=== PATIENT | female | born 1965 | race Caucasian/White ===

== ENCOUNTER 2017-05-25 00:33 | Emergency (ER) | payer OTHER ==
[2017-05-25] MEDS ORDERED: Sodium Chloride 0.9% 1,000 ML IV ONE (00:41)
[2017-05-25] MEDS ORDERED: EPINEPHrine 1 MG/ML SDV SUBCUT ONE (00:41)
[2017-05-25] MEDS ORDERED: methylPREDNISolone Sodium Succinate 125 MG/2 ML SDV IVPUSH ONE (00:41)
[2017-05-25] MEDS ORDERED: diphenhydrAMINE 50 MG/ML SDV IVPUSH ONE (00:41)
--- NOTE | 2017-05-25 00:45 | EDM.PDOC ---
ED HPI GENERAL MEDICAL PROBLEM - General Chief Complaint: Allergic Reaction Stated Complaint: BIT BY SOMETHING AND THROAT IS SWOLLEN [id number] Time Seen by Provider: 05/25/17 00:42 Source of Information: Reports: Patient, Family History Limitations: Reports: No Limitations - History of Present Illness INITIAL COMMENTS - FREE TEXT/NARRATIVE: sudden onset itchy rash on right thigh area tonight and throat feels swollen, denies new foods/clothing/detergent/meds. but been on bactrim for acne on face past 10 days. ate pizza tonight. otherwise nothing unusual. - Related Data Allergies Allergy/AdvReac Type Severity Reaction Status Date / Time codeine Allergy Chest Verified 05/25/17 20:43 Tightness Home Meds: Home Meds . [No Known Home Meds] 05/25/17 [History] ED ROS ALLERGIC REACTION - Review of Systems Review Of Systems: ROS reveals no pertinent complaints other than HPI. ED EXAM GENERAL NO PERIP PULSE - Physical Exam Exam: See Below Exam Limited By: No Limitations General Appearance: Alert, WD/WN, Anxious, Mild Distress, Moderate Distress, Other (upset) Ears: Hearing Grossly Normal Throat/Mouth: Normal Voice, No Airway Compromise, Other (no gross edema noted) Head: Atraumatic Neck: Non-Tender, Full Range of Motion Respiratory/Chest: No Respiratory Distress, Lungs Clear, Normal Breath Sounds Cardiovascular: Regular Rate, Rhythm GI/Abdominal: Soft, Non-Tender Extremities: Other (right thigh multiple areas of pruritic urticarial rash) Neurological: Alert, Oriented, Normal Cognition, Normal Gait, No Motor/Sensory Deficits Psychiatric: Anxious, Flat Affect Skin Exam: Warm, Dry, Normal Color Lymphatic: No Adenopathy Course - Vital Signs Last Recorded V/S: Last Vital Signs Temp 37.3 C 05/25/17 01:30 Pulse 88 05/25/17 01:30 Resp 14 05/25/17 01:30 BP 117/62 05/25/17 01:30 Pulse Ox 100 05/25/17 01:30 - Orders/Labs/Meds Labs: Laboratory Tests 05/25/17 05/25/17 Range/Units 00:45 00:45 WBC 10.1 H (5.0-10.0) 10^3/uL RBC 4.90 (4.2-5.4) 10^6/uL Hgb 14.8 (12.0-16.0) g/dL Hct 43.7 (37.0-47.0) % MCV 89.2 (80-100) fL MCH 30.2 (27.0-34.0) pg MCHC 33.9 (33.0-35.0) g/dL Plt Count 156 (150-450) 10^3/uL Neut % (Auto) 67.0 (42.2-75.2) % Lymph % (Auto) 26.5 (20.5-50.1) % [place] % (Auto) 5.9 (2-8) % Eos % (Auto) 0.4 L (1.0-3.0) % Baso % (Auto) 0.2 (0.0-1.0) % Add Manual Diff Yes Neutrophils % (Manual) 63 (42-75) % Band Neutrophils % 2 % Lymphocytes % (Manual) 27 (20-50) % Atypical Lymphs % 0 % Monocytes % (Manual) 6 (2-8) % Eosinophils % (Manual) 2 (1-3) % Basophils % (Manual) 0 Sodium 138 (135-145) mmol/L Potassium 3.3 L (3.6-5.0) mmol/L Chloride 101 (101-111) mmol/L Carbon Dioxide 28.0 (21.0-31.0) mmol/L Anion Gap 12.3 BUN 19 H (7-18) mg/dL Creatinine 1.0 (0.6-1.3) mg/dL Est Cr Clr Drug Dosing 62.31 mL/min Estimated GFR (MDRD) 58 BUN/Creatinine Ratio 19.00 Glucose 100 (74-105) mg/dL Calcium 9.4 (8.4-10.2) mg/dl Total Bilirubin 0.7 (0.2-1.0) mg/dL AST 25 (10-42) IU/L ALT 18 (10-60) IU/L Alkaline Phosphatase 67 (42-121) IU/L Total Protein 7.1 (6.7-8.2) g/dl Albumin 4.5 (3.2-5.5) g/dl Globulin 2.6 Albumin/Globulin Ratio 1.73 Meds: Medications Discontinued Medications Generic Name Dose Route Start Last Admin Trade Name Freq PRN Reason Stop Dose Admin Diphenhydramine HCl 25 mg 05/25/17 00:41 05/25/17 00:49 Benadryl IVPUSH 05/25/17 00:42 25 mg ONETIME ONE Administration Epinephrine HCl 0.5 mg 05/25/17 00:41 05/25/17 00:50 Adrenalin SUBCUT 05/25/17 00:42 0.5 mg ONETIME ONE Administration Sodium Chloride 1,000 mls @ 999 mls/hr 05/25/17 00:41 05/25/17 00:49 Normal Saline IV 05/25/17 01:41 999 mls/hr .BOLUS ONE Administration Methylprednisolone Sodium Succinate 125 mg 05/25/17 00:41 05/25/17 00:49 Solu-Medrol IVPUSH 05/25/17 00:42 125 mg ONETIME ONE Administration Ondansetron HCl 4 mg 05/25/17 00:54 05/25/17 01:00 Zofran IV 05/25/17 00:55 4 mg ONETIME ONE Administration - Re-Assessments/Exams Free Text/Narrative Re-Assessment/Exam: 05/25/17 01:22 re-exam; s/p IV Rx = much better. Departure - Departure Time of Disposition: 01:40 Disposition: Home, Self-Care 01 Condition: Good Clinical Impression: Allergic reaction Qualifiers: Encounter type: initial encounter Qualified Code(s): T78.40XA - Allergy, unspecified, initial encounter - Discharge Information Instructions: Angioedema, [id number] Forms: ED Department Discharge Additional Instructions: 1) avoid sulpha meds 2) continue benadryl 25mg, take one to two every 8 hours as needed for itchy rash 3) see clinic if not significantly better by Friday 4) return if there is any change or concern rx given; medrol dospak
[2017-05-25] MEDS ORDERED: Ondansetron 4 MG/2 ML SDV IV ONE (00:54)
[2017-05-25 01:10] LABS: ANION GAP 12.3
== END 2017-05-25 01:42 | disposition home or self-care (01) ==
LOC: DL.ED 00:33
DX: T78.40XA Allergy, unspecified, initial encounter (principal); Z88.5 Allergy status to narcotic agent; T78.2XXD Anaphylactic shock, unspecified, subsequent encounter; T78.3XXD Angioneurotic edema, subsequent encounter
CPT/HCPCS: 36415; 80053; 85025; 96361; 96372; 96374; 96375; 99284; 99285; A9270; J0171; J1200; J2405; J2930; J7030; J7050; S0028

== ENCOUNTER 2017-05-25 20:28 | Emergency (ER) | payer OTHER ==
[2017-05-25] MEDS ORDERED: Sodium Chloride 0.9% 10 ML Syringe FLUSH PRN (20:31)
[2017-05-25] MEDS ORDERED: EPINEPHrine 1 MG/ML SDV IM ONE ×2 (20:31→20:59)
[2017-05-25] MEDS ORDERED: Sodium Chloride 0.9% 1,000 ML IV ONE (20:32)
[2017-05-25] MEDS ORDERED: Famotidine 20 MG/2 ML SDV IVPUSH ONE (20:32)
[2017-05-25] MEDS ORDERED: methylPREDNISolone Sodium Succinate 125 MG/2 ML SDV IVPUSH ONE (20:37)
--- NOTE | 2017-05-25 20:41 | EDM.PDOC ---
ED HPI GENERAL MEDICAL PROBLEM - General Chief Complaint: Allergic Reaction Stated Complaint: alergic reaction Time Seen by Provider: 05/25/17 20:30 Source of Information: Reports: Patient, Family, RN, RN Notes Reviewed History Limitations: Reports: No Limitations - History of Present Illness INITIAL COMMENTS - FREE TEXT/NARRATIVE: Pt presents to the ER with c/o swelling of the lips and tongue and severe tightness in the throat. states she was seen in the ER last night for an allergic reaction with swelling to the lips and hives. She has recently been on a Sulfa drug. states she has taken Benadryl 50 which only helped for a short time. Onset: Today, Sudden Duration: Getting Worse Throat Pain Score (Numeric/FACES): 5 - Related Data Allergies Allergy/AdvReac Type Severity Reaction Status Date / Time codeine Allergy Chest Verified 05/25/17 20:43 Tightness Home Meds: Home Meds . [No Known Home Meds] 05/25/17 [History] Past Medical History - Infectious Disease History Infectious Disease History: Reports: Chicken Pox - Past Surgical History GI Surgical History: Reports: Cholecystectomy Female Surgical History: Reports: Section, Hysterectomy, Other (See Below) Other Female Surgeries/Procedures: bladder repair Social & Family History - Family History Family Medical History: Noncontributory - Tobacco Use Smoking Status *Q: Never Smoker Second Hand Smoke Exposure: No - Caffeine Use Caffeine Use: Reports: Coffee - Recreational Drug Use Recreational Drug Use: No ED ROS ALLERGIC REACTION - Review of Systems Review Of Systems: ROS reveals no pertinent complaints other than HPI. ED EXAM GENERAL NO PERIP PULSE - Physical Exam Exam: See Below Exam Limited By: No Limitations General Appearance: Alert, WD/WN, Moderate Distress Eye Exam: Bilateral Eye: EOMI, Normal Inspection, PERRL Ears: Normal External Exam, Hearing Grossly Normal Nose: Normal Inspection Throat/Mouth: Normal Inspection, Normal Voice, No Airway Compromise. No: Normal Lips (upper lip significantly swollen) Head: Atraumatic, Normocephalic Neck: Normal Inspection, Supple, Non-Tender, Full Range of Motion, Other ( feeling of tightness in the throat) Respiratory/Chest: No Respiratory Distress, Lungs Clear, Normal Breath Sounds, No Accessory Muscle Use, Chest Non-Tender Cardiovascular: Normal Peripheral Pulses, Regular Rate, Rhythm, No Edema, No Gallop, No JVD, No Murmur, No Rub GI/Abdominal: Normal Bowel Sounds, Soft, Non-Tender, No Organomegaly, No Distention, No Abnormal Bruit, No Mass, Pelvis Stable, Other (burning in the esophagus and stomach ) (Female) Exam: Deferred Rectal (Female) Exam: Deferred Back Exam: Normal Inspection, Full Range of Motion, NT Extremities: Normal Inspection, Normal Range of Motion, Non-Tender, Normal Capillary Refill, No Pedal Edema Neurological: Alert, Oriented, CN II-XII Intact, Normal Cognition, Normal Gait, Normal Reflexes, No Motor/Sensory Deficits Psychiatric: Normal Affect, Normal Mood Skin Exam: Warm, Dry, Intact, No Rash Lymphatic: No Adenopathy Course - Vital Signs Last Recorded V/S: Last Vital Signs Temp 98.1 F 05/25/17 20:35 Pulse 106 H 05/25/17 20:35 Resp 20 05/25/17 20:35 BP 115/75 05/25/17 20:35 Pulse Ox 100 05/25/17 20:35 - Orders/Labs/Meds Orders: Active Orders 24 hr Category Date Time Status Peripheral IV Care [RC] . DIRECTED Care 05/25/17 20:31 Active GI Cocktail Med 05/25/17 21:46 Once 30 ml PO ONETIME ONE Sodium Chloride 0.9% [Saline Flush] Med 05/25/17 20:31 Active 10 ml FLUSH ASDIRECTED PRN Peripheral IV Insertion Adult [OM.PC] Stat Oth 05/25/17 20:31 Ordered Medication Orders Sodium Chloride (Saline Flush) 10 ml FLUSH ASDIRECTED PRN PRN Reason: Keep Vein Open Last Admin: 05/25/17 20:42 Dose: 10 ml Meds: Medications Generic Name Dose Route Start Last Admin Trade Name Freq PRN Reason Stop Dose Admin Sodium Chloride 10 ml 05/25/17 20:31 05/25/17 20:42 Saline Flush FLUSH 10 ml ASDIRECTED PRN Administration Keep Vein Open Discontinued Medications Generic Name Dose Route Start Last Admin Trade Name Freq PRN Reason Stop Dose Admin Epinephrine HCl 0.5 mg 05/25/17 20:31 05/25/17 20:38 Adrenalin IM 05/25/17 20:32 0.5 mg ONETIME ONE Administration Epinephrine HCl 0.5 mg 05/25/17 20:59 05/25/17 21:05 Adrenalin IM 05/25/17 21:00 0.5 mg ONETIME ONE Administration Famotidine 20 mg 05/25/17 20:32 05/25/17 20:41 Pepcid IVPUSH 05/25/17 20:33 20 mg ONETIME ONE Administration Sodium Chloride 1,000 mls @ 999 mls/hr 05/25/17 20:32 05/25/17 20:38 Normal Saline IV 05/25/17 21:32 999 mls/hr .BOLUS ONE Administration Methylprednisolone Sodium Succinate 125 mg 05/25/17 20:37 05/25/17 20:41 Solu-Medrol IVPUSH 05/25/17 20:38 125 mg ONETIME ONE Administration Departure - Departure Time of Disposition: 21:48 Disposition: Home, Self-Care 01 Clinical Impression: Allergic reaction Qualifiers: Encounter type: initial encounter Qualified Code(s): T78.40XA - Allergy, unspecified, initial encounter Anaphylaxis Qualifiers: Encounter type: subsequent encounter Qualified Code(s): T78.2XXD - Anaphylactic shock, unspecified, subsequent encounter Angioedema Qualifiers: Encounter type: subsequent encounter Qualified Code(s): T78.3XXD - Angioneurotic edema, subsequent encounter - Discharge Information Instructions: Anaphylactic Reaction, Allergies, Bronchospasm, Adult, Easy-to- Read Forms: ED Department Discharge Additional Instructions: Get the Medrol Dose pack filled RX: Magic Mouthwash Be sure to have Sulfa drugs put on your allergy lists Follow up with your primary care facility this week. - My Orders Last 24 Hours: My Active Orders 05/25/17 20:31 Peripheral IV Care [RC] . DIRECTED Sodium Chloride 0.9% [Saline Flush] 10 ml FLUSH ASDIRECTED PRN Peripheral IV Insertion Adult [OM.PC] Stat 05/25/17 21:46 GI Cocktail 30 ml PO ONETIME ONE - Assessment/Plan Last 24 Hours: My Active Orders 05/25/17 20:31 Peripheral IV Care [RC] . DIRECTED Sodium Chloride 0.9% [Saline Flush] 10 ml FLUSH ASDIRECTED PRN Peripheral IV Insertion Adult [OM.PC] Stat 05/25/17 21:46 GI Cocktail 30 ml PO ONETIME ONE
[2017-05-25] MEDS ORDERED: GI Cocktail Oral Solution 30 ML PO ONE (21:46)
== END 2017-05-25 22:11 | disposition home or self-care (01) ==
LOC: DL.ED 20:28
DX: T78.40XA Allergy, unspecified, initial encounter (principal); T78.2XXD Anaphylactic shock, unspecified, subsequent encounter; T78.3XXD Angioneurotic edema, subsequent encounter; Z88.5 Allergy status to narcotic agent
CPT/HCPCS: 96361; 96372; 96374; 96375; 99284; A9270; J0171; J2930; J7030; J7050; S0028

== ENCOUNTER 2017-05-26 14:13 | Inpatient (IN) | payer OTHER ==
[2017-05-26] MEDS ORDERED: methylPREDNISolone Sodium Succinate 125 MG/2 ML SDV IVPUSH ONE (14:18)
[2017-05-26] MEDS ORDERED: Sodium Chloride 0.9% 1,000 ML IV ONE (14:18)
[2017-05-26] MEDS ORDERED: Famotidine 20 MG/2 ML SDV IVPUSH ONE (14:21)
[2017-05-26] MEDS: Sodium Chloride 0.9% 10 ML Syringe FLUSH PRN ×3 (14:30→22:47)
[2017-05-26 14:57] LABS: ANION GAP 12.6; CHLORIDE,CL 99 mmol/L (101-111); SODIUM,NA 135 mmol/L (135-145)
[2017-05-26] MEDS: DIPHENHYDRAMINE 25 MG PO SCH ×2 (17:35→21:46)
[2017-05-26] MEDS: Famotidine 20 MG/2 ML SDV IVPUSH SCH (20:52)
[2017-05-26] MEDS: cycloSPORINE Ophth Drops U/D Box of 30 EYEBOTH SCH (20:59)
[2017-05-26] MEDS: methylPREDNISolone Sodium Succinate 40 MG/1 ML SDV IVPUSH SCH ×2 (22:24→22:47)
--- NOTE | 2017-05-26 23:30 | HP ---
DOS: 05/26/2017 HISTORY OF PRESENT ILLNESS: The patient is a 52-year-old female, admitted here for observation. The patient was seen in the emergency room twice prior to this admission. The patient has been having episodes of anaphylaxis in which has been having some hives and noted to have some lip swelling. She denies any prior history of hives or angioedema over the legs. The patient was recently completing a dose of Bactrim for a skin infection, and the last dose was 3 days prior to this visit. She used to take Bactrim in the past with no reported side effects. When she was in the emergency room, she was initially discharged on Medrol Dosepak and then she also got a dose of EpiPen while she was in the emergency room. When she went home, the symptoms have started to subside and again came back last night. Again given a dose of epinephrine after she was seen with recurrence of the lip swelling. She has been taking her Benadryl 50 mg every 6 hours. She denies any shortness of breath. Continues to have urticarial rash all over her body, now mainly on the trunk and lower extremities and very itchy. Denies similar symptoms in the household. No fever or chills. She was also started on prednisolone drops by her practice advisor and noticed some conjunctival injection but no blurring of vision. MEDICATIONS: Reviewed. ALLERGIES: To codeine. REVIEW OF SYSTEMS: Ten systems reviewed and were negative except for those mentioned above. PHYSICAL EXAMINATION: Vital Signs: Blood pressure 114/76, heart rate of 98 beats per minute, respirations 20 breaths per minute, oxygen saturation 100%, temperature 99.6. General Appearance: Awake, not in distress. Speaking in sentences. HEENT: Normocephalic, atraumatic. Eyes, bilateral conjunctival injections. No active drainage from both eyes. Cardiovascular: Regular rate and rhythm. Chest: Symmetric chest expansion. Lungs: Bilateral air entry. Abdomen: Soft. Normoactive bowel sounds. Extremities: No edema. Good pulses. Neurologic: Awake and oriented x3. ASSESSMENT/PLAN: Labs reviewed. Leukocytosis mainly from recent steroid use. She was already given Solu-Medrol at the emergency room. We will continue with every 8 hours, and we will continue famotidine. We will start albuterol nebulization every 6 hours as needed for shortness of breath. We will monitor oxygen saturation every 4 hours. Continue with IV fluids. Continue the rest of her medications. We will continue to follow the patient in the medical-surgical bed. [facility] /[id number]
[2017-05-27] MEDS: DIPHENHYDRAMINE 25 MG PO SCH ×6 (01:27→21:19)
[2017-05-27] MEDS: methylPREDNISolone Sodium Succinate 40 MG/1 ML SDV IVPUSH SCH ×2 (05:41→14:15)
[2017-05-27] MEDS: Sodium Chloride 0.9% 10 ML Syringe FLUSH PRN (05:41)
[2017-05-27] MEDS: cycloSPORINE Ophth Drops U/D Box of 30 EYEBOTH SCH ×2 (09:24→21:19)
[2017-05-27] MEDS: Hydrochlorothiazide/Triamterene 25-37.5 Tab PO SCH (09:24)
[2017-05-27] MEDS: Famotidine 20 MG/2 ML SDV IVPUSH SCH ×2 (09:24→21:15)
[2017-05-27] MEDS: Rosuvastatin 10 MG Tab PO SCH (09:24)
[2017-05-27] MEDS: Albuterol 0.083% 2.5 MG/3 ML Neb Soln NEB PRN ×2 (11:17→19:53)
[2017-05-27] MEDS: ALPRAZolam 0.5 MG Tab PO PRN ×2 (12:07→21:20)
[2017-05-27] MEDS: Acetaminophen 325 MG Tab PO PRN (18:02)
[2017-05-28] MEDS ORDERED: hydrOXYzine HCl 25 MG Tab PO ONE (00:09)
[2017-05-28] MEDS: DIPHENHYDRAMINE 25 MG PO SCH ×4 (01:26→09:48)
[2017-05-28] MEDS ORDERED: Pantoprazole 40 MG Tab.CR PO ONE (01:42)
[2017-05-28] MEDS ORDERED: GI Cocktail Oral Solution 30 ML PO ONE (03:44)
[2017-05-28] MEDS ORDERED: methylPREDNISolone Sodium Succinate 40 MG/1 ML SDV IVPUSH ONE (04:04)
[2017-05-28] MEDS ORDERED: diphenhydrAMINE 50 MG/ML SDV IVPUSH ONE (04:05)
[2017-05-28] MEDS: Acetaminophen 325 MG Tab PO PRN ×2 (08:07→19:55)
[2017-05-28] MEDS ORDERED: CETIRIZINE 10 MG PO SCH ×2 (09:00→21:00)
[2017-05-28] MEDS: Famotidine 20 MG/2 ML SDV IVPUSH SCH ×3 (09:20→22:32)
[2017-05-28] MEDS: Sodium Chloride 0.9% 10 ML Syringe FLUSH PRN ×8 (09:22→23:27)
[2017-05-28] MEDS: Rosuvastatin 10 MG Tab PO SCH (09:28)
[2017-05-28] MEDS: Hydrochlorothiazide/Triamterene 25-37.5 Tab PO SCH (09:28)
--- NOTE | 2017-05-28 09:29 | PN ---
DATE: 05/27/2017 SUBJECTIVE: Ms. Barnett is a 52-year-old female seen in subsequent hospitalization. The patient was admitted as a case of allergic reaction possibly to Bactrim and prednisone. She has been getting IV Solu-Medrol, has been maintaining good oxygen saturation. However, the patient subjectively noticed worsening of the hives, but when we look at the rashes they are not that demarcated just streaks of red patch. She feels that as if her throat is closing and tight. She denies any wheezing. OBJECTIVE: Vital Signs: Blood pressure 122/75, heart rate of 88 beats per minute, respirations 20 breaths per minute, oxygen saturation 99%, temperature 99.9. General Appearance: Awake, not in distress. Speaking in sentences. Chest: Symmetric chest expansion. Lungs bilateral air entry. Cardiovascular: Regular rate and rhythm. Neurologic: Awake and alert. ASSESSMENT AND PLAN: We will continue with IV Solu-Medrol for now and Benadryl every 4 hours. We will have her do albuterol nebulizations. Prednisone was put on as an intolerance. Again, on review when she was in the emergency room, she was given Solu-Medrol and noted improvement of the symptoms. We will observe her for continued improvement of the hives, otherwise, she remains hemodynamically stable. [facility] /[id number] NADER
[2017-05-28] MEDS: cycloSPORINE Ophth Drops U/D Box of 30 EYEBOTH SCH ×2 (09:47→22:50)
[2017-05-28] MEDS ORDERED: Montelukast 10 MG Tab PO ONE (10:22)
[2017-05-28] MEDS: diphenhydrAMINE 50 MG/ML SDV IVPUSH SCH ×4 (10:47→23:28)
--- NOTE | 2017-05-28 11:26 | PN ---
DATE: 05/28/2017 SUBJECTIVE: Ms. Barnett is a 52-year-old female, admitted because of allergic reaction. On brief history, the patient was given IV Solu-Medrol in the emergency room. This was continued as a Solu-Medrol 40 mg every 8 hours, which the patient got 3 doses and the last dose was 4:00 p.m. yesterday. Towards the night, she started having itching and early this morning around 3:00 a.m. to 4:00 a.m. noticed that hives are worsening, but otherwise, maintaining good oxygen saturation. Denies shortness of breath and vital signs have been stable. She was given IV Solu-Medrol 80 mg and IV Benadryl. On brief review, the patient was taking 9- day course of Bactrim for skin infection before she presented last Friday 2 days prior to being admitted, in which she was discharged from the ER on Medrol Dosepak, which she apparently was not filled, came back to the emergency room the day after, that is Friday, with the same problem with lip swelling and she was given prednisone medication, which when she took on the morning of admitted, she noticed appearance of the hives. Reports that when she has gotten Solu-Medrol in the emergency room, symptoms are better. OBJECTIVE: Vital Signs: This morning, on encounter, blood pressure 117/69, heart rate of 92 beats per minute, respirations 20 breaths per minute, oxygen saturation 98%, temperature 100.0. General Appearance: Awake, in distress. Speaking in sentences. CVS: Regular rate and rhythm. Chest: Symmetric chest expansion. Lungs, bilateral air entry. Abdomen: Soft normoactive bowel sounds. Skin: New urticarial rash noted on both upper extremities and on both the trapezius area and also on bilateral thighs. ASSESSMENT AND PLAN: We will change Benadryl to 25 mg IV every 6 hours and we will do Solu-Medrol 60 mg IV every 8 hours. We will start Singulair. Discontinue for now Crestor, Maxzide, and Restasis. We will continue with Pepcid twice a day. We will add Zyrtec. The patient reports that she was exposed to cases of influenza days prior to admission. With this fever, we will screen her for influenza testing. We will continue to follow her in medical- surgical bed. [facility] /[id number] MTDD
[2017-05-28] MEDS: methylPREDNISolone Sodium Succinate 125 MG/2 ML SDV IVPUSH SCH ×3 (12:06→22:14)
[2017-05-28] MEDS: ESTRADIOL 1 MG PO SCH ×2 (17:16→17:59)
--- NOTE | 2017-05-28 18:50 | EDM.PDOC ---
ED HPI GENERAL MEDICAL PROBLEM - General Chief Complaint: Allergic Reaction Stated Complaint: ALLERGIC REACTION [id number] Time Seen by Provider: 05/27/17 14:15 Source of Information: Reports: Patient History Limitations: Reports: No Limitations - History of Present Illness INITIAL COMMENTS - FREE TEXT/NARRATIVE: Pt presents to the ER with continued problem with allergic reaction. She states she has also been using a prednisolone drops in her eyes. She states she does not have the tightening in the throat as badly as she did previously, and less angioedema, but hives and itching on her trunk. Patient states they previously thought she was allergic to the Bactrim she had been taking. This is the third visit the patient has made to the ER in the past 36 hours for the allergic reaction. Onset: Today, Sudden feet Pain Score (Numeric/FACES): 0 - Related Data Allergies Allergy/AdvReac Type Severity Reaction Status Date / Time codeine Allergy Severe Chest Verified 05/27/17 14:00 Tightness prednisolone acetate, Allergy Severe Hives Verified 05/27/17 14:00 micronized prednisone Allergy Severe Hives Verified 05/27/17 14:00 sulfamethoxazole Allergy Severe angioedema Verified 05/28/17 04:07 [From Bactrim] trimethoprim [From Bactrim] Allergy Severe angioedema Verified 05/28/17 04:07 Home Meds: Home Meds ALPRAZolam [ALPRAZolam] 0.5 mg PO Q4HR PRN 05/26/17 [History] Cyanocobalamin (Vitamin B-12) [Cyanocobalamin Injection] 1,000 mcg IM Q30D 05/26 [History] Estradiol [Estradiol] 1 mg PO DAILY 05/26/17 [History] Rosuvastatin [Crestor] 10 mg PO DAILY 05/26/17 [History] Triamterene/Hydrochlorothiazid [Triamterene-HCTZ 37.5-25 MG] 1 tab PO DAILY [History] cycloSPORINE [Restasis] 1 drop EYEBOTH BID 05/26/17 [History] diphenhydrAMINE [Benadryl] 50 mg PO Q4H 05/26/17 [History] predniSONE [Prednisone] 4 mg PO ASDIRECTED 05/26/17 [History] Past Medical History Cardiovascular History: Reports: High Cholesterol, Hypertension Neurological History: Reports: Vertigo Hematologic History: Reports: B12 Deficiency, Other (See Below) Dermatologic History: Reports: Other (See Below) Other Dermatologic History: rash from allergic reaction bactrim - Infectious Disease History Infectious Disease History: Reports: Chicken Pox - Past Surgical History HEENT Surgical History: Reports: Other (See Below) Other HEENT Surgeries/Procedures: Menieres Disease GI Surgical History: Reports: Cholecystectomy, Colonoscopy, EGD Female Surgical History: Reports: Section, Hysterectomy, Other (See Below) Other Female Surgeries/Procedures: bladder repair Social & Family History - Family History Family Medical History: Noncontributory Respiratory: Reports: Asthma Oncologic: Reports: Leukemia - Tobacco Use Smoking Status *Q: Former Smoker Used Tobacco, but Quit: Yes Month Tobacco Last Used: march Second Hand Smoke Exposure: No - Caffeine Use Caffeine Use: Reports: Coffee - Recreational Drug Use Recreational Drug Use: No ED ROS ALLERGIC REACTION - Review of Systems Review Of Systems: ROS reveals no pertinent complaints other than HPI. ED EXAM GENERAL NO PERIP PULSE - Physical Exam Exam: See Below Exam Limited By: No Limitations General Appearance: Alert, WD/WN, Moderate Distress Eye Exam: Bilateral Eye: EOMI, Normal Inspection, PERRL Ears: Normal External Exam, Hearing Grossly Normal Nose: Normal Inspection, Normal Mucosa, No Blood Throat/Mouth: Normal Inspection, Normal Voice, No Airway Compromise Head: Atraumatic Neck: Normal Inspection, Supple, Non-Tender, Full Range of Motion Respiratory/Chest: No Respiratory Distress, Lungs Clear, Normal Breath Sounds, No Accessory Muscle Use, Chest Non-Tender Cardiovascular: Normal Peripheral Pulses, Regular Rate, Rhythm, No Edema, No Gallop, No JVD, No Murmur, No Rub GI/Abdominal: Normal Bowel Sounds, Soft, Non-Tender, No Organomegaly, No Distention, No Abnormal Bruit, No Mass (Female) Exam: Deferred Rectal (Female) Exam: Deferred Back Exam: Normal Inspection, Full Range of Motion, NT Extremities: Normal Inspection, Normal Range of Motion, Non-Tender, Normal Capillary Refill, No Pedal Edema Neurological: Alert, Oriented, CN II-XII Intact, Normal Cognition, Normal Gait, Normal Reflexes, No Motor/Sensory Deficits Psychiatric: Anxious, Tearful Skin Exam: Warm, Dry, Rash, Other (hives) Lymphatic: No Adenopathy Course - Vital Signs Last Recorded V/S: Last Vital Signs Temp 100.0 F 05/28/17 12:00 Pulse 88 05/28/17 12:00 Resp 20 05/28/17 12:00 BP 117/69 05/28/17 08:22 Pulse Ox 96 05/28/17 12:00 - Orders/Labs/Meds Orders: Active Orders 24 hr Category Date Time Status Cyanocobalamin (Vitamin B12) [Vitamin B12] Med 06/19/17 09:00 Active 1,000 mcg IM Q30D diphenhydrAMINE [Benadryl] Med 05/28/17 11:00 Active 25 mg IVPUSH Q4H methylPREDNISolone Sod Succ [Solu-MEDROL] Med 05/28/17 12:00 Active 60 mg IVPUSH Q8H Medication Orders Acetaminophen (Tylenol) 650 mg PO Q6H PRN PRN Reason: Pain Last Admin: 05/28/17 08:07 Dose: 650 mg Admin: 05/27/17 18:02 Dose: 650 mg Albuterol (Proventil Neb Soln) 2.5 mg NEB Q4HRRT PRN PRN Reason: Shortness of Breath Last Admin: 05/27/17 19:53 Dose: 2.5 mg Admin: 05/27/17 11:17 Dose: 2.5 mg Alprazolam (Xanax) 0.5 mg PO Q4H PRN PRN Reason: DIZZINESS/MENIERES DISEASE SX Last Admin: 05/27/17 21:20 Dose: 0.5 mg Admin: 05/27/17 12:07 Dose: 0.5 mg Cyanocobalamin (Vitamin B12) 1,000 mcg IM Q30D [facility] Cyclosporine (Restasis) 1 each EYEBOTH BID [facility] Last Admin: 05/28/17 09:47 Dose: Admin: 05/27/17 21:19 Dose: 1 drop Admin: 05/27/17 09:24 Dose: 1 drop Admin: 05/26/17 20:59 Dose: 1 drop Diphenhydramine HCl (Benadryl) 25 mg IVPUSH Q4H [facility] Last Admin: 05/28/17 15:09 Dose: 25 mg Admin: 05/28/17 10:47 Dose: 25 mg Famotidine (Pepcid) 20 mg IVPUSH BID [facility] Last Admin: 05/28/17 09:35 Dose: 20 mg Admin: 05/27/17 21:15 Dose: 20 mg Admin: 05/27/17 09:24 Dose: 20 mg Admin: 05/26/17 20:52 Dose: 20 mg Methylprednisolone Sodium Succinate (Solu-Medrol) 60 mg IVPUSH Q8H [facility] Last Admin: 05/28/17 12:06 Dose: Estradiol 1 Mg (Patient's Own Med) 1 each PO DAILY [facility] Last Admin: 05/28/17 17:59 Dose: Admin: 05/28/17 17:16 Dose: Cetirizine 10mg Tabs (Pt's Own Med) 1 each PO BID [facility] Rosuvastatin Calcium (Crestor) 10 mg PO DAILY [facility] Last Admin: 05/28/17 09:28 Dose: Admin: 05/27/17 09:24 Dose: 10 mg Sodium Chloride (Saline Flush) 10 ml FLUSH ASDIRECTED PRN PRN Reason: Keep Vein Open Last Admin: 05/28/17 15:10 Dose: 10 ml Admin: 05/28/17 10:48 Dose: 10 ml Admin: 05/28/17 09:22 Dose: 10 ml Admin: 05/27/17 05:41 Dose: 10 ml Admin: 05/26/17 22:47 Dose: 10 ml Admin: 05/26/17 20:52 Dose: 10 ml Admin: 05/26/17 14:30 Dose: 10 ml Triamterene/HCTZ (Maxzide 25-37.5 Mg) 1 each PO DAILY [facility] Last Admin: 05/28/17 09:28 Dose: Admin: 05/27/17 09:24 Dose: 1 each Labs: Laboratory Tests 05/26/17 05/26/17 05/27/17 Range/Units 14:30 14:30 05:45 WBC 12.1 H (5.0-10.0) 10^3/uL RBC 4.58 (4.2-5.4) 10^6/uL Hgb 14.0 (12.0-16.0) g/dL Hct 41.5 (37.0-47.0) % MCV 90.6 (80-100) fL MCH 30.6 (27.0-34.0) pg MCHC 33.7 (33.0-35.0) g/dL Plt Count 174 (150-450) 10^3/uL Neut % (Auto) 82.8 H (42.2-75.2) % Lymph % (Auto) 12.1 L (20.5-50.1) % [place] % (Auto) 5.0 (2-8) % Eos % (Auto) 0.0 L (1.0-3.0) % Baso % (Auto) 0.1 (0.0-1.0) % Sodium 135 (135-145) mmol/L Potassium 3.6 (3.6-5.0) mmol/L Chloride 99 L (101-111) mmol/L Carbon Dioxide 27.0 (21.0-31.0) mmol/L Anion Gap 12.6 BUN 10 (7-18) mg/dL Creatinine 0.8 (0.6-1.3) mg/dL Est Cr Clr Drug Dosing TNP Estimated GFR (MDRD) > 60 BUN/Creatinine Ratio 12.50 Glucose 100 (74-105) mg/dL Calcium 8.9 (8.4-10.2) mg/dl Total Bilirubin 0.6 (0.2-1.0) mg/dL AST 26 (10-42) IU/L ALT 17 (10-60) IU/L Alkaline Phosphatase 49 (42-121) IU/L Total Protein 6.6 L (6.7-8.2) g/dl Albumin 4.1 (3.2-5.5) g/dl Globulin 2.5 Albumin/Globulin Ratio 1.64 Urine Color Yellow (YELLOW) Urine Appearance Clear (CLEAR) Urine pH 7.0 (5.0-9.0) Ur Specific [place] 1.010 (1.005-1.030) Urine Protein Negative (NEGATIVE) Urine Glucose (UA) Negative (NEGATIVE) Urine Ketones Negative (NEGATIVE) Urine Occult Blood Negative (NEGATIVE) Urine Nitrite Negative (NEGATIVE) Urine Bilirubin Negative (NEGATIVE) Urine Urobilinogen 0.2 (0.2-1.0) mg/dL Ur Leukocyte Esterase Negative (NEGATIVE) Urine RBC 0-5 /HPF Urine WBC 0-5 (0-5/HPF) /HPF Ur Epithelial Cells Few /HPF Urine Bacteria Few (0-FEW/HPF) /HPF Meds: Medications Generic Name Dose Route Start Last Admin Trade Name Freq PRN Reason Stop Dose Admin Acetaminophen 650 mg 05/27/17 14:54 05/28/17 08:07 Tylenol PO 650 mg Q6H PRN Administration Pain Albuterol 2.5 mg 05/26/17 17:05 05/27/17 19:53 Proventil Neb Soln NEB 2.5 mg Q4HRRT PRN Administration Shortness of Breath Alprazolam 0.5 mg 05/26/17 21:25 05/27/17 21:20 Xanax PO 0.5 mg Q4H PRN Administration DIZZINESS/MENIERES DISEASE SX Cyanocobalamin 1,000 mcg 06/19/17 09:00 Vitamin B12 IM Q30D [facility] Cyclosporine 1 each 05/26/17 21:00 05/28/17 09:47 Restasis EYEBOTH Not Given BID [facility] Diphenhydramine HCl 25 mg 05/28/17 11:00 05/28/17 15:09 Benadryl IVPUSH 25 mg Q4H [facility] Administration Famotidine 20 mg 05/26/17 21:00 05/28/17 09:35 Pepcid IVPUSH 20 mg BID [facility] Administration Methylprednisolone Sodium Succinate 60 mg 05/28/17 12:00 05/28/17 12:06 Solu-Medrol IVPUSH Not Given Q8H [facility] Estradiol 1 Mg 1 each 05/27/17 09:00 05/28/17 17:59 Patient's Own Med PO Not Given DAILY [facility] Cetirizine 10mg Tabs 1 each 05/28/17 21:00 Pt's Own Med PO BID [facility] Rosuvastatin Calcium 10 mg 05/27/17 09:00 05/28/17 09:28 Crestor PO Not Given DAILY [facility] Sodium Chloride 10 ml 05/26/17 14:18 05/28/17 15:10 Saline Flush FLUSH 10 ml ASDIRECTED PRN Administration Keep Vein Open Triamterene/HCTZ 1 each 05/27/17 09:00 05/28/17 09:28 Maxzide 25-37.5 Mg PO Not Given DAILY [facility] Discontinued Medications Generic Name Dose Route Start Last Admin Trade Name Freq PRN Reason Stop Dose Admin Al Hydroxide/Mg Hydroxide 30 ml 05/28/17 03:44 05/28/17 03:55 Gi Cocktail PO 05/28/17 03:45 30 ml ONETIME ONE Administration Diphenhydramine HCl 50 mg 05/26/17 18:00 05/28/17 09:48 Benadryl PO Not Given Q4H [facility] Diphenhydramine HCl 25 mg 05/28/17 04:05 05/28/17 04:19 Benadryl IVPUSH 05/28/17 04:06 25 mg ONETIME ONE Administration Famotidine 20 mg 05/26/17 14:21 05/26/17 14:30 Pepcid IVPUSH 05/26/17 14:22 20 mg ONETIME ONE Administration Hydroxyzine HCl 25 mg 05/28/17 00:09 05/28/17 00:21 Atarax PO 05/28/17 00:10 25 mg ONETIME ONE Administration Sodium Chloride 1,000 mls @ 999 mls/hr 05/26/17 14:18 05/26/17 14:30 Normal Saline IV 05/26/17 15:18 999 mls/hr .BOLUS ONE Administration Methylprednisolone Sodium Succinate 125 mg 05/26/17 14:18 05/26/17 14:30 Solu-Medrol IVPUSH 05/26/17 14:19 125 mg ONETIME ONE Administration Methylprednisolone Sodium Succinate 40 mg 05/26/17 22:00 05/27/17 14:15 Solu-Medrol IVPUSH 40 mg Q8HR [facility] Administration Methylprednisolone Sodium Succinate 80 mg 05/28/17 04:04 05/28/17 04:22 Solu-Medrol IVPUSH 05/28/17 04:05 80 mg ONETIME ONE Administration Montelukast Sodium 10 mg 05/28/17 10:22 05/28/17 10:47 Singulair PO 05/28/17 10:23 10 mg ONETIME ONE Administration Pantoprazole Sodium 40 mg 05/28/17 01:42 05/28/17 01:51 Protonix PO 05/28/17 01:43 40 mg ONETIME ONE Administration Cetirizine 10mg Tabs 0 each 05/28/17 09:00 05/28/17 10:51 Pt's Own Med PO 1 each DAILY [facility] Administration Departure - Departure Time of Disposition: 16:01 Disposition: Admitted As Inpatient 67 Condition: Fair Clinical Impression: Allergic reaction Qualifiers: Encounter type: initial encounter Qualified Code(s): T78.40XA - Allergy, unspecified, initial encounter - Discharge Information
[2017-05-28] MEDS: Pantoprazole 40 MG Vial IVPUSH SCH (22:22)
[2017-05-29] MEDS: Sodium Chloride 0.9% 10 ML Syringe FLUSH PRN ×10 (03:07→23:06)
[2017-05-29] MEDS: diphenhydrAMINE 50 MG/ML SDV IVPUSH SCH ×6 (03:13→23:06)
[2017-05-29] MEDS: methylPREDNISolone Sodium Succinate 125 MG/2 ML SDV IVPUSH SCH ×3 (06:46→22:11)
[2017-05-29] MEDS: Hydrochlorothiazide/Triamterene 25-37.5 Tab PO SCH (09:00)
[2017-05-29] MEDS: Rosuvastatin 10 MG Tab PO SCH (09:01)
[2017-05-29] MEDS: Famotidine 20 MG/2 ML SDV IVPUSH SCH ×2 (09:01→21:06)
[2017-05-29] MEDS: Pantoprazole 40 MG Vial IVPUSH SCH (09:07)
[2017-05-29] MEDS: cycloSPORINE Ophth Drops U/D Box of 30 EYEBOTH SCH ×2 (09:17→21:07)
[2017-05-29] MEDS: ESTRADIOL 1 MG PO SCH (09:18)
[2017-05-29 10:45] LABS: ANION GAP 10.2; CHLORIDE,CL 103 mmol/L (101-111); SODIUM,NA 138 mmol/L (135-145)
--- NOTE | 2017-05-29 13:35 | PN ---
DATE: 05/29/2017 SUBJECTIVE: Mrs. Bruna Barnett is a 52-year-old female, admitted with acute allergic reaction with hives and rash, possibly to Bactrim. For the last 24 hours, the patient was initially not taking her Solu-Medrol, but after having a detailed discussion regarding the risks, benefits, and complications of treatment, the patient is agreeable for Solu-Medrol and has been on IV Solu-Medrol 80 q.8 hourly and since then her rash seems to be improving. She denies any chest pain. No shortness of breath. No abdominal pain. No nausea. No vomiting. No diarrhea. REVIEW OF SYSTEMS: Cardiovascular, respiratory, gastrointestinal, neurology, constitutional were all evaluated. PHYSICAL EXAMINATION: Vital Signs: Temperature of 98.6, pulse of 97, blood pressure of 119/73, respiratory rate of 20, saturating at 95% on room air. General Appearance: The patient is well oriented to time, place, and person. Follows commands spontaneously. Cardiovascular System: S1, S2 heard with normal intensity. No gallops. Respiratory System: Clear to auscultation bilaterally. No wheeze. No crepitations. Abdomen: Soft. Bowel sounds positive. Nontender. No rigidity. Extremities: No edema in bilateral lower extremities. Skin: The patient noted to have mild rash on the left thigh, but gradually improving. Neurologic: No gross focal neurological deficit. MEDICATIONS: Reviewed. Continue with: 1. Tylenol 650 every 6 hours as needed for pain. 2. Albuterol 2.5 nebulizers as needed. 3. Xanax 0.5 mg every 4 hours as needed. 4. Vitamin B12 of 1000 mcg IM q.30 days. 5. Pepcid 20 mg IV twice a day. 6. Methylprednisolone 80 mg IV q.8 hourly. 7. Protonix 40 mg IV daily. 8. Crestor 10 mg daily. 9. Triamterene-hydrochlorothiazide 1 tablet daily. LABORATORY DATA: Reviewed. WBC 7.3, hemoglobin 13.6, hematocrit 41.2, platelet count 159. ASSESSMENT: Acute allergic reaction to Bactrim. PLAN: Acute allergic reaction: The patient's hives and rash seem to be improving at this time. She is on high-dose steroids at 80 mg q.8 hourly, Solu- Medrol will be given for next 24 hours, and gradually wean down the steroids and maybe switch to oral steroids at the time of discharge. We will add Bactrim to her allergic list. The patient was thinking that she is allergic to prednisone, but unlikely she is allergic to prednisone. We will discontinue the prednisone from the allergy list. We will continue IV Pepcid and IV Protonix as she was complaining of abdominal discomfort, which have improved at this time. [facility] /[id number]
[2017-05-29] MEDS: Aluminum Hydroxide/Magnesium Hydroxide/Simethicone Susp 30 ML Cup PO PRN (23:17)
[2017-05-30] MEDS: ALPRAZolam 0.5 MG Tab PO PRN ×2 (00:04→04:13)
[2017-05-30] MEDS: Sodium Chloride 0.9% 10 ML Syringe FLUSH PRN ×4 (03:00→16:41)
[2017-05-30] MEDS: diphenhydrAMINE 50 MG/ML SDV IVPUSH SCH ×2 (03:01→06:42)
[2017-05-30] MEDS: Calcium Carbonate 500 MG Tab.Chew PO PRN ×2 (03:33→07:40)
[2017-05-30] MEDS: Acetaminophen 325 MG Tab PO PRN (04:09)
[2017-05-30] MEDS: methylPREDNISolone Sodium Succinate 125 MG/2 ML SDV IVPUSH SCH (06:41)
[2017-05-30] MEDS: Aluminum Hydroxide/Magnesium Hydroxide/Simethicone Susp 30 ML Cup PO PRN (06:54)
[2017-05-30] MEDS: Famotidine 20 MG/2 ML SDV IVPUSH SCH ×2 (08:27→22:00)
[2017-05-30] MEDS: Pantoprazole 40 MG Vial IVPUSH SCH (08:32)
[2017-05-30] MEDS: Hydrochlorothiazide/Triamterene 25-37.5 Tab PO SCH (09:53)
[2017-05-30] MEDS: cycloSPORINE Ophth Drops U/D Box of 30 EYEBOTH SCH ×2 (09:53→22:03)
[2017-05-30] MEDS: Rosuvastatin 10 MG Tab PO SCH (09:53)
[2017-05-30] MEDS: ESTRADIOL 1 MG PO SCH (09:55)
--- NOTE | 2017-05-30 10:18 | PCM.PN ---
- General Info Date of Service: 05/30/17 Subjective Update: Overnight had significant heartburn symptoms. Feeling a fire sensation from the stomach up to the throat. Has been on Pepcid, Protonix. Tums improved a little. Was worse during the night not is better during the day when sitting up. No new rash, no problem with breathing, no wheezing, no problems swallowing or lip swelling. - Patient Data Vitals - Most Recent: Last Vital Signs Temp 37.5 C 05/30/17 07:00 Pulse 83 05/30/17 07:00 Resp 20 05/30/17 07:00 BP 117/83 05/30/17 07:00 Pulse Ox 96 05/30/17 07:00 Weight - Most Recent: 78.562 kg I&O - Last 24 Hours: Intake & Output 05/29/17 05/30/17 05/30/17 22:59 06:59 14:59 Intake Total 400 500 Output Total 1200 500 Balance -800 0 Lab Results Last 24 Hours: Laboratory Results - last 24 hr 05/29/17 05/29/17 Range/Units 10:17 10:17 WBC 7.3 (5.0-10.0) 10^3/uL RBC 4.50 (4.2-5.4) 10^6/uL Hgb 13.6 (12.0-16.0) g/dL Hct 41.2 (37.0-47.0) % MCV 91.6 (80-100) fL MCH 30.2 (27.0-34.0) pg MCHC 33.0 (33.0-35.0) g/dL Plt Count 159 (150-450) 10^3/uL Sodium 138 (135-145) mmol/L Potassium 4.2 (3.6-5.0) mmol/L Chloride 103 (101-111) mmol/L Carbon Dioxide 29.0 (21.0-31.0) mmol/L Anion Gap 10.2 BUN 15 (7-18) mg/dL Creatinine 0.7 (0.6-1.3) mg/dL Est Cr Clr Drug Dosing 89.01 mL/min Estimated GFR (MDRD) > 60 Glucose 118 H (74-105) mg/dL Calcium 8.8 (8.4-10.2) mg/dl Med Orders - Current: Current Medications Acetaminophen (Tylenol) 650 mg PO Q6H PRN PRN Reason: Pain Last Admin: 05/30/17 04:09 Dose: 650 mg Al Hydroxide/Mg Hydroxide (Mag-Al Plus) 30 ml PO Q8H PRN PRN Reason: Indigestion Last Admin: 05/30/17 06:54 Dose: 30 ml Albuterol (Proventil Neb Soln) 2.5 mg NEB Q4HRRT PRN PRN Reason: Shortness of Breath Last Admin: 05/27/17 19:53 Dose: 2.5 mg Alprazolam (Xanax) 0.5 mg PO Q4H PRN PRN Reason: DIZZINESS/MENIERES DISEASE SX Last Admin: 05/30/17 04:13 Dose: 0.5 mg Calcium Carbonate/Glycine (Tums) 500 mg PO Q4H PRN PRN Reason: Heartburn Last Admin: 05/30/17 07:40 Dose: 500 mg Cyanocobalamin (Vitamin B12) 1,000 mcg IM Q30D [facility] Cyclosporine (Restasis) 1 each EYEBOTH BID [facility] Last Admin: 05/30/17 09:53 Dose: 1 drop Dexamethasone (Dexamethasone) 4 mg PO QID [facility] Diphenhydramine HCl (Benadryl) 25 mg IVPUSH Q4H PRN PRN Reason: Itching Famotidine (Pepcid) 20 mg IVPUSH BID [facility] Last Admin: 05/30/17 08:27 Dose: 20 mg Pantoprazole Sodium (Protonix Iv) 40 mg IVPUSH DAILY [facility] Last Admin: 05/30/17 08:32 Dose: 40 mg Estradiol 1 Mg (Patient's Own Med) 1 each PO DAILY [facility] Last Admin: 05/30/17 09:55 Dose: Not Given Rosuvastatin Calcium (Crestor) 10 mg PO DAILY [facility] Last Admin: 05/30/17 09:53 Dose: 10 mg Sodium Chloride (Saline Flush) 10 ml FLUSH ASDIRECTED PRN PRN Reason: Keep Vein Open Last Admin: 05/30/17 08:27 Dose: 10 ml Sucralfate (Carafate) 1 gm PO TIDAC [facility] Triamterene/HCTZ (Maxzide 25-37.5 Mg) 1 each PO DAILY [facility] Last Admin: 05/30/17 09:53 Dose: 1 each Discontinued Medications Al Hydroxide/Mg Hydroxide (Gi Cocktail) 30 ml PO ONETIME ONE Stop: 05/28/17 03:45 Last Admin: 05/28/17 03:55 Dose: 30 ml Diphenhydramine HCl (Benadryl) 50 mg PO Q4H [facility] Last Admin: 05/28/17 09:48 Dose: Not Given Diphenhydramine HCl (Benadryl) 25 mg IVPUSH ONETIME ONE Stop: 05/28/17 04:06 Last Admin: 05/28/17 04:19 Dose: 25 mg Diphenhydramine HCl (Benadryl) 25 mg IVPUSH Q4H [facility] Last Admin: 05/30/17 06:42 Dose: 25 mg Famotidine (Pepcid) 20 mg IVPUSH ONETIME ONE Stop: 05/26/17 14:22 Last Admin: 05/26/17 14:30 Dose: 20 mg Hydroxyzine HCl (Atarax) 25 mg PO ONETIME ONE Stop: 05/28/17 00:10 Last Admin: 05/28/17 00:21 Dose: 25 mg Sodium Chloride (Normal Saline) 1,000 mls @ 999 mls/hr IV .BOLUS ONE Stop: 05/26/17 15:18 Last Admin: 05/26/17 14:30 Dose: 999 mls/hr Methylprednisolone Sodium Succinate (Solu-Medrol) 125 mg IVPUSH ONETIME ONE Stop: 05/26/17 14:19 Last Admin: 05/26/17 14:30 Dose: 125 mg Methylprednisolone Sodium Succinate (Solu-Medrol) 40 mg IVPUSH Q8HR [facility] Last Admin: 05/27/17 14:15 Dose: 40 mg Methylprednisolone Sodium Succinate (Solu-Medrol) 80 mg IVPUSH ONETIME ONE Stop: 05/28/17 04:05 Last Admin: 05/28/17 04:22 Dose: 80 mg Methylprednisolone Sodium Succinate (Solu-Medrol) 60 mg IVPUSH Q8H [facility] Last Admin: 05/28/17 20:59 Dose: Not Given Methylprednisolone Sodium Succinate (Solu-Medrol) 80 mg IVPUSH Q8H [facility] Last Admin: 05/30/17 06:41 Dose: 80 mg Montelukast Sodium (Singulair) 10 mg PO ONETIME ONE Stop: 05/28/17 10:23 Last Admin: 05/28/17 10:47 Dose: 10 mg Pantoprazole Sodium (Protonix) 40 mg PO ONETIME ONE Stop: 05/28/17 01:43 Last Admin: 05/28/17 01:51 Dose: 40 mg Cetirizine 10mg Tabs (Pt's Own Med) 0 each PO DAILY [facility] Last Admin: 05/28/17 10:51 Dose: 1 each Cetirizine 10mg Tabs (Pt's Own Med) 1 each PO BID [facility] Last Admin: 05/28/17 22:57 Dose: Not Given - Exam General: Alert, Oriented Neck: Supple Lungs: Clear to Auscultation, Normal Respiratory Effort. No: Wheezing Cardiovascular: Regular Rate, Regular Rhythm GI/Abdominal Exam: Normal Bowel Sounds, Soft, Non-Tender Extremities: No Pedal Edema Skin: Warm, Dry. No: Rash - Problem List & Annotations (1) Angioedema SNOMED Code(s): 35413561 Code(s): T78.3XXA - ANGIONEUROTIC EDEMA, INITIAL ENCOUNTER Status: Acute Current Visit: No Qualifiers: Encounter type: subsequent encounter Qualified Code(s): T78.3XXD - Angioneurotic edema, subsequent encounter - Problem List Review Problem List Initiated/Reviewed/Updated: Yes - My Orders Last 24 Hours: My Active Orders 05/30/17 03:17 Calcium Carbonate [Tums] 500 mg PO Q4H PRN 05/30/17 10:13 diphenhydrAMINE [Benadryl] 25 mg IVPUSH Q4H PRN 05/30/17 11:00 Sucralfate [Carafate] 1 gm PO TIDAC 05/30/17 13:00 Dexamethasone 4 mg PO QID - Plan Plan:: #1 allergic reaction, angioedema This is likely secondary to Bactrim Appears much improved, resolved I will transition from IV high-dose Solu-Medrol to oral dexamethasone We'll taper Benadryl #2 GERD We'll add sucralfate Continue Pepcid and Protonix #3 hypertension Continue triamterene and hydrochlorothiazide #4 anxiety Continue Xanax as needed Discussed with Dr. Alexis
[2017-05-30] MEDS: Sucralfate Suspension 1 GM/10 ML Cup PO SCH ×2 (11:01→16:45)
[2017-05-30] MEDS: diphenhydrAMINE 50 MG/ML SDV IVPUSH PRN ×2 (12:45→16:41)
[2017-05-30] MEDS: Dexamethasone 2 MG Tab PO SCH ×3 (13:28→22:00)
[2017-05-30] MEDS: Sucralfate Suspension 1 GM/10 ML Cup PO ONE (23:46)
[2017-05-31] MEDS: diphenhydrAMINE 50 MG/ML SDV IVPUSH PRN ×2 (05:23→09:38)
[2017-05-31] MEDS ORDERED: Pantoprazole 40 MG Vial IVPUSH SCH (06:00)
[2017-05-31] MEDS: Sucralfate Suspension 1 GM/10 ML Cup PO SCH ×2 (08:48→12:07)
[2017-05-31] MEDS: Rosuvastatin 10 MG Tab PO SCH (08:48)
[2017-05-31] MEDS: Hydrochlorothiazide/Triamterene 25-37.5 Tab PO SCH (08:49)
[2017-05-31] MEDS: Dexamethasone 2 MG Tab PO SCH ×2 (08:49→16:48)
[2017-05-31] MEDS: Famotidine 20 MG/2 ML SDV IVPUSH SCH (08:50)
[2017-05-31] MEDS: cycloSPORINE Ophth Drops U/D Box of 30 EYEBOTH SCH (08:50)
[2017-05-31] MEDS: ESTRADIOL 1 MG PO SCH (08:51)
--- NOTE | 2017-05-31 10:24 | PCM.DCSUM1 ---
Discharge Summary - Hospital Course Free Text/Narrative:: #1 allergic reaction, angioedema This is likely secondary to Bactrim Appears much improved, resolved was treated with IV high-dose Solu-Medrol stable on oral dexamethasone, Benadryl will give epipen on discharge #2 GERD treat with sucralfate Continue Pepcid and Protonix #3 hypertension Continue triamterene and hydrochlorothiazide (reviewed literature - these can be used with Bactrim allergy) #4 anxiety Continue Xanax as needed - Discharge Data Discharge Date: 05/31/17 Discharge Disposition: Home, Self-Care 01 Condition: Good - Discharge Diagnosis/Problem(s) (1) Angioedema SNOMED Code(s): 68887178 ICD Code: T78.3XXA - ANGIONEUROTIC EDEMA, INITIAL ENCOUNTER Status: Acute Current Visit: No Qualifiers: Encounter type: subsequent encounter Qualified Code(s): T78.3XXD - Angioneurotic edema, subsequent encounter - Patient Instructions Diet: Usual Diet as Tolerated Activity: As Tolerated - Discharge Plan Prescriptions/Med Rec: Dexamethasone 4 mg PO QID #23 tablet EPINEPHrine [Epipen] 0.3 mg IM ASDIRECTED PRN #1 pen PRN Reason: shortness of breath, lip swell Famotidine [Pepcid] 20 mg PO BID #20 tab Pantoprazole Sodium [Protonix] 40 mg PO BID #14 tablet. Sucralfate [Carafate] 1 gm PO TIDAC #30 gram Home Medications: Home Meds ALPRAZolam 0.5 mg PO Q4HR PRN 05/26/17 [History] Cyanocobalamin (Vitamin B-12) [Cyanocobalamin Injection] 1,000 mcg IM Q30D 05/26 [History] Estradiol 1 mg PO DAILY 05/26/17 [History] Rosuvastatin [Crestor] 10 mg PO DAILY 05/26/17 [History] Triamterene/Hydrochlorothiazid [Triamterene-HCTZ 37.5-25 MG] 1 tab PO DAILY [History] cycloSPORINE [Restasis] 1 drop EYEBOTH BID 05/26/17 [History] diphenhydrAMINE [Benadryl] 50 mg PO Q4H 05/26/17 [History] Dexamethasone 4 mg PO QID #23 tablet 05/31/17 [Rx] EPINEPHrine [Epipen] 0.3 mg IM ASDIRECTED PRN #1 pen 05/31/17 [Rx] Famotidine [Pepcid] 20 mg PO BID #20 tab 05/31/17 [Rx] Pantoprazole Sodium [Protonix] 40 mg PO BID #14 tablet. 05/31/17 [Rx] Sucralfate [Carafate] 1 gm PO TIDAC #30 gram 05/31/17 [Rx] Patient Handouts: Angioedema, [id number], Hives - Discharge Summary/Plan Comment DC Time >30 min.: No - General Info Date of Service: 05/31/17 Subjective Update: Overnight remained stable no SOB. NO problem swallowing. NO significant rash or hives. HAs been on PO meds for 24 h Functional Status: Reports: Pain Controlled, Tolerating Diet - Review of Systems General: Denies: Fever Pulmonary: Denies: Shortness of Breath Cardiovascular: Denies: Chest Pain Skin: Denies: Rash Neurological: Denies: Confusion - Patient Data Vitals - Most Recent: Last Vital Signs Temp 37.1 C 05/31/17 08:46 Pulse 96 05/31/17 08:46 Resp 20 05/31/17 08:46 BP 116/73 05/31/17 08:46 Pulse Ox 98 05/31/17 08:46 Weight - Most Recent: 78.562 kg I&O - Last 24 hours: Intake & Output 05/30/17 05/31/17 05/31/17 22:59 06:59 14:59 Intake Total 300 Output Total 600 Balance -300 Med Orders - Current: Current Medications Acetaminophen (Tylenol) 650 mg PO Q6H PRN PRN Reason: Pain Last Admin: 05/30/17 04:09 Dose: 650 mg Al Hydroxide/Mg Hydroxide (Mag-Al Plus) 30 ml PO Q8H PRN PRN Reason: Indigestion Last Admin: 05/30/17 06:54 Dose: 30 ml Albuterol (Proventil Neb Soln) 2.5 mg NEB Q4HRRT PRN PRN Reason: Shortness of Breath Last Admin: 05/27/17 19:53 Dose: 2.5 mg Alprazolam (Xanax) 0.5 mg PO Q4H PRN PRN Reason: DIZZINESS/MENIERES DISEASE SX Last Admin: 05/30/17 04:13 Dose: 0.5 mg Calcium Carbonate/Glycine (Tums) 500 mg PO Q4H PRN PRN Reason: Heartburn Last Admin: 05/30/17 07:40 Dose: 500 mg Cyanocobalamin (Vitamin B12) 1,000 mcg IM Q30D [facility] Cyclosporine (Restasis) 1 each EYEBOTH BID [facility] Last Admin: 05/31/17 08:50 Dose: 1 drop Dexamethasone (Dexamethasone) 4 mg PO QID [facility] Last Admin: 05/31/17 08:49 Dose: 4 mg Diphenhydramine HCl (Benadryl) 25 mg IVPUSH Q4H PRN PRN Reason: Itching Last Admin: 05/31/17 09:38 Dose: 25 mg Famotidine (Pepcid) 20 mg IVPUSH BID [facility] Last Admin: 05/31/17 08:50 Dose: 20 mg Pantoprazole Sodium (Protonix Iv) 40 mg IVPUSH DAILY@0600 [facility] Last Admin: 05/31/17 05:25 Dose: 40 mg Estradiol 1 Mg (Patient's Own Med) 1 each PO DAILY [facility] Last Admin: 05/31/17 08:51 Dose: Not Given Rosuvastatin Calcium (Crestor) 10 mg PO DAILY [facility] Last Admin: 05/31/17 08:48 Dose: 10 mg Sodium Chloride (Saline Flush) 10 ml FLUSH ASDIRECTED PRN PRN Reason: Keep Vein Open Last Admin: 05/30/17 16:41 Dose: 10 ml Sucralfate (Carafate) 1 gm PO TIDAC [facility] Last Admin: 05/31/17 08:48 Dose: 1 gm Triamterene/HCTZ (Maxzide 25-37.5 Mg) 1 each PO DAILY [facility] Last Admin: 05/31/17 08:49 Dose: 1 each Discontinued Medications Al Hydroxide/Mg Hydroxide (Gi Cocktail) 30 ml PO ONETIME ONE Stop: 05/28/17 03:45 Last Admin: 05/28/17 03:55 Dose: 30 ml Diphenhydramine HCl (Benadryl) 50 mg PO Q4H [facility] Last Admin: 05/28/17 09:48 Dose: Not Given Diphenhydramine HCl (Benadryl) 25 mg IVPUSH ONETIME ONE Stop: 05/28/17 04:06 Last Admin: 05/28/17 04:19 Dose: 25 mg Diphenhydramine HCl (Benadryl) 25 mg IVPUSH Q4H [facility] Last Admin: 05/30/17 06:42 Dose: 25 mg Famotidine (Pepcid) 20 mg IVPUSH ONETIME ONE Stop: 05/26/17 14:22 Last Admin: 05/26/17 14:30 Dose: 20 mg Hydroxyzine HCl (Atarax) 25 mg PO ONETIME ONE Stop: 05/28/17 00:10 Last Admin: 05/28/17 00:21 Dose: 25 mg Sodium Chloride (Normal Saline) 1,000 mls @ 999 mls/hr IV .BOLUS ONE Stop: 05/26/17 15:18 Last Admin: 05/26/17 14:30 Dose: 999 mls/hr Methylprednisolone Sodium Succinate (Solu-Medrol) 125 mg IVPUSH ONETIME ONE Stop: 05/26/17 14:19 Last Admin: 05/26/17 14:30 Dose: 125 mg Methylprednisolone Sodium Succinate (Solu-Medrol) 40 mg IVPUSH Q8HR [facility] Last Admin: 05/27/17 14:15 Dose: 40 mg Methylprednisolone Sodium Succinate (Solu-Medrol) 80 mg IVPUSH ONETIME ONE Stop: 05/28/17 04:05 Last Admin: 05/28/17 04:22 Dose: 80 mg Methylprednisolone Sodium Succinate (Solu-Medrol) 60 mg IVPUSH Q8H [facility] Last Admin: 05/28/17 20:59 Dose: Not Given Methylprednisolone Sodium Succinate (Solu-Medrol) 80 mg IVPUSH Q8H [facility] Last Admin: 05/30/17 06:41 Dose: 80 mg Montelukast Sodium (Singulair) 10 mg PO ONETIME ONE Stop: 05/28/17 10:23 Last Admin: 05/28/17 10:47 Dose: 10 mg Pantoprazole Sodium (Protonix) 40 mg PO ONETIME ONE Stop: 05/28/17 01:43 Last Admin: 05/28/17 01:51 Dose: 40 mg Pantoprazole Sodium (Protonix Iv) 40 mg IVPUSH DAILY [facility] Last Admin: 05/30/17 08:32 Dose: 40 mg Cetirizine 10mg Tabs (Pt's Own Med) 0 each PO DAILY [facility] Last Admin: 05/28/17 10:51 Dose: 1 each Cetirizine 10mg Tabs (Pt's Own Med) 1 each PO BID [facility] Last Admin: 05/28/17 22:57 Dose: Not Given Sucralfate (Carafate) 1 gm PO ONETIME ONE Stop: 05/31/17 00:01 Last Admin: 05/30/17 23:46 Dose: 1 gm - Exam General: Reports: Alert, Oriented HEENT: Reports: Other (no lip swelling, no facial swelling) Neck: Reports: Supple Lungs: Reports: Clear to Auscultation, Normal Respiratory Effort Cardiovascular: Reports: Regular Rate, Regular Rhythm Skin: Reports: Warm, Rash (few areas of mild erythema, no blister, ) *Q Meaningful Use (DIS) - VTE *Q VTE Criteria *Q: - Stroke *Q Stroke Criteria *Q: - AMI *Q AMI Criteria *Q:
[2017-06-19] MEDS ORDERED: Cyanocobalamin (Vitamin B12) 1,000 MCG/ML SDV IM SCH (09:00)
== END 2017-05-31 12:30 | disposition home or self-care (01) | DRG 916 ==
LOC: DL.ED 14:13 → DL.MS 15:42 → UNDOADMOB 15:42 → DL.MS 16:43 → OBSVTOIN 05-28 10:05
PROVIDERS: ADMIT Internal Medicine; ATTEND Internal Medicine
DX: T78.3XXA Angioneurotic edema, initial encounter (principal); T37.0X5A Adverse effect of sulfonamides, initial encounter; K21.9 Gastro-esophageal reflux disease without esophagitis; I10 Essential (primary) hypertension; F41.9 Anxiety disorder, unspecified
CPT/HCPCS: 36415; 80048; 80053; 81001; 85025; 85027; 87804; 94640; 96361; 96374; 96375; 96376; 99285; A9270-GY; C9113; G0378; J1200; J2920; J2930; J7030; J7050; J7620-GY; J8540; S0028